=== PATIENT | male | born 1990 | race Caucasian/White ===

== ENCOUNTER 2021-09-30 15:55 | Emergency (ER) | payer OTHER ==
[~2021-09-30 15:55] MED LIST: AUGMENTIN 875-1 EACH PO; BACTRIM DS TAB1 EACH PO; IBUPROFEN600 MG PO
[2021-09-30] MEDS ORDERED: BENZONATATE100 MG PO (17:55)
[2021-09-30] MEDS ORDERED: ZYRTEC10 MG PO (17:55)
== END 2021-09-30 18:02 | disposition home or self-care (01) ==
LOC: ER1 15:55
DX: J06.9 Acute upper respiratory infection, unspecified (principal); Z20.822 Contact with and (suspected) exposure to COVID-19; F17.200 Nicotine dependence, unspecified, uncomplicated
CPT/HCPCS: 71045; 99283; U0002